=== PATIENT | female | born 1950 | race Caucasian/White ===

== ENCOUNTER 2019-06-13 06:56 | Day surgery (SDC) | payer MEDICARE ==
[~2019-06-13] VITALS: Ht 162.6 cm; Wt 95.4 kg
[2019-06-13 07:23] VITALS: BP 125/70
[2019-06-13] MEDS ORDERED: LAMO200T2 PO (08:32)
[2019-06-13] MEDS ORDERED: DULO-31 PO (08:32)
[2019-06-13] MEDS ORDERED: INSU100V13 SQ (08:32)
[2019-06-13] MEDS ORDERED: CALC667T8 PO (08:32)
[2019-06-13] MEDS ORDERED: ASPI-611 PO (08:32)
[2019-06-13] MEDS ORDERED: GABA-530 PO (08:32)
[2019-06-13] MEDS ORDERED: CALC667C5 PO (08:32)
[2019-06-13] MEDS ORDERED: LEVO50TA8 PO (08:32)
[2019-06-13] MEDS ORDERED: ATOR40TA PO (08:32)
[2019-06-13] MEDS ORDERED: LOSA25TA96 PO (08:32)
[2019-06-13] MEDS ORDERED: METO-539 PO (08:32)
[2019-06-13] MEDS ORDERED: CALC0.253 PO (08:32)
[2019-06-13] MEDS ORDERED: FERR325T28 PO (08:32)
[2019-06-13] MEDS ORDERED: RISP0.5T3 PO (08:32)
[2019-06-13] MEDS ORDERED: FURO80TA87 PO (08:32)
[2019-06-13] MEDS ORDERED: LANTUS SQ (08:32)
[2019-06-13] MEDS ORDERED: normal saline 1000ml 1,000 ML IV SCH ×2 (08:34→11:14)
[2019-06-13] MEDS ORDERED: LIDOcaine 1%/PF 5ML 10 MG/ML VIAL SQ ONE (08:35)
[2019-06-13] MEDS ORDERED: heparin 1,000 units/ml 10ml inj ICATH ONE (08:35)
[2019-06-13] MEDS ORDERED: midazolam 2 mg/2 ml injection IV PRN (08:35)
[2019-06-13] MEDS ORDERED: fentaNYL/PF 50MCG/1 ML 2ML syringe IV PRN (08:35)
[2019-06-13 09:17] LABS: ALBUMIN 3.3 G/DL (3.4-5.0); ANION GAP 7 (8-16); BLOOD UREA NITROGEN 43 MG/DL (7-18); BUN/CREATININE RATIO 11.9 (6.6-38.0); CALCIUM 8.9 MG/DL (8.5-10.1); CHLORIDE 98 MMOL/L (99-107); GLUCOSE 287 MG/DL (70-104); POTASSIUM 4.4 MMOL/L (3.5-5.1); SODIUM 134 MMOL/L (135-145); TOTAL CARBON DIOXIDE 28.9 MMOL/L (24-32); eGFR 12 ML/MIN
--- NOTE | 2019-06-13 09:20 | NUR ---
MATHEUS Vazquez at bedside
[2019-06-13] MEDS ORDERED: LIDOcaine 1%/PF 5ML 10 MG/ML VIAL ONE (09:26)
[2019-06-13] MEDS ORDERED: iohexol 300mg/ml 100ml inj. ONE ×2 (09:26→10:25)
[2019-06-13] MEDS ORDERED: heparin 1,000unit/ml 10ml vial 10 ML ONE (09:26)
[2019-06-13] MEDS ORDERED: heparin 1,000 UNITS/NS 500ml 500 ML ONE (09:26)
[2019-06-13] MEDS ORDERED: midazolam 2 mg/2 ml injection ONE ×2 (09:26→10:06)
[2019-06-13] MEDS ORDERED: fentaNYL/PF 50MCG/1 ML 2ML syringe ONE ×2 (09:26→10:07)
--- NOTE | 2019-06-13 09:32 | NUR ---
Pt leaving floor to procedure
[2019-06-13 11:15] VITALS: BP 131/62
[2019-06-13 11:30] VITALS: BP 132/74
[2019-06-13 11:45] VITALS: BP 143/75
[2019-06-13 12:00] VITALS: BP 133/75
[2019-06-13 12:35] VITALS: BP 136/70
== END 2019-06-13 12:35 | disposition home or self-care (01) ==
LOC: SSTAY O 06:56
PROVIDERS: ATTEND Radiology Vascular & Interventional Radiology
DX: T82.858A Stenosis of other vascular prosthetic devices, implants and grafts, initial encounter (principal); E11.22 Type 2 diabetes mellitus with diabetic chronic kidney disease; I12.0 Hypertensive chronic kidney disease with stage 5 chronic kidney disease or end stage renal disease; N18.6 End stage renal disease; E78.00 Pure hypercholesterolemia, unspecified; D50.9 Iron deficiency anemia, unspecified; E11.40 Type 2 diabetes mellitus with diabetic neuropathy, unspecified; E03.9 Hypothyroidism, unspecified; Z79.899 Other long term (current) drug therapy; Z79.4 Long term (current) use of insulin; Y83.2 Surgical operation with anastomosis, bypass or graft as the cause of abnormal reaction of the patient, or of later complication, without mention of misadventure at the time of the procedure; Y92.89 Other specified places as the place of occurrence of the external cause
CPT/HCPCS: 36415; 36902; 80048; 99152; 99153; C1725; C1769; C1894; J1644; J2250; J3010; J7030; Q9967

== ENCOUNTER 2022-12-14 08:55 | Day surgery (SDC) | payer MEDICARE ==
[~2022-12-14] VITALS: Ht 162.6 cm; Wt 83.2 kg
[2022-12-14] VITALS (7 sets, daily range): BP systolic 95–115; BP diastolic 42–67; PULSE 74–80; RESP 14–16; TEMP 98.2; O2SAT 92–97
[~2022-12-14 08:55] MED LIST: ASPI-611 PO; ATOR40TA PO; CALC0.253 PO; CALC667C5 PO; CALC667T8 PO; DULO-31 PO; FERR325T28 PO; FURO80TA87 PO; GABA-530 PO; INSU100V13 SQ; LAMO200T2 PO; LANTUS SQ; LEVO50TA8 PO; LOSA25TA96 PO; METO-539 PO; RISP0.5T65 PO
[2022-12-14] MEDS ORDERED: normal saline 1000ml 1,000 ML IV PRN (09:20)
[2022-12-14] MEDS ORDERED: DOCU100C40 PO (09:34)
[2022-12-14] MEDS ORDERED: NEPHC PO (09:34)
[2022-12-14] MEDS ORDERED: FURO40TA4 PO (09:34)
[2022-12-14] MEDS ORDERED: SEVE800T28 PO (09:34)
[2022-12-14 10:01] LABS: BASOPHILS # (AUTO) 0.1 X10'3 (0-0.2); BASOPHILS % (AUTO) 0.7 % (0-1); EOSINOPHILS # (AUTO) 0.3 X10'3 (0-0.9); EOSINOPHILS % (AUTO) 3.9 % (0-6); HEMATOCRIT 34.7 % (35.0-45.0); HEMOGLOBIN 11.5 g/dl (12.0-16.0); LYMPHOCYTES # (AUTO) 1.4 X10'3 (1.1-4.8); LYMPHOCYTES % (AUTO) 16.4 % (21-51); MEAN CORPUSCULAR HEMOGLOBIN 30.7 PG (27.0-31.0); MEAN CORPUSCULAR HGB CONC 33.1 g/dL (33.0-36.5); MEAN CORPUSCULAR VOLUME 92.7 FL (78-98); MEAN PLATELET VOLUME 8.4 FL (7.4-10.4); MONOCYTES # (AUTO) 0.7 X10'3 (0-0.9); MONOCYTES % (AUTO) 8.2 % (2-12); NEUTROPHILS % (AUTO) 70.8 % (42-75); PLATELET COUNT 269 X10'3 (140-440); RED BLOOD COUNT 3.75 X10'6 (4.20-5.60); RED CELL DISTRIBUTION WIDTH 15.4 % (11.5-14.5); WHITE BLOOD COUNT 8.4 X10'3 (4.5-11.0)
[2022-12-14 10:09] LABS: ALBUMIN 3.4 G/DL (3.4-5.0); ANION GAP 15 (8-16); BLOOD UREA NITROGEN 60 MG/DL (7-18); CALCIUM 9.5 MG/DL (8.5-10.1); CHLORIDE 99 MMOL/L (99-107); GLUCOSE 254 MG/DL (70-104); POTASSIUM 4.1 MMOL/L (3.5-5.1); SODIUM 139 MMOL/L (135-145); TOTAL CARBON DIOXIDE 25.4 MMOL/L (24-32); eGFR 11 ML/MIN
[2022-12-14] MEDS ORDERED: iohexol 300mg/ml 100ml inj. ONE (11:03)
[2022-12-14] MEDS ORDERED: fentaNYL/PF 50MCG/1 ML 2ML syringe ONE (11:03)
[2022-12-14] MEDS ORDERED: heparin 1,000 UNITS/NS 500ml 500 ML ONE (11:04)
== END 2022-12-14 13:25 | disposition home or self-care (01) ==
LOC: SSTAY O 08:55
PROVIDERS: ATTEND Radiology Diagnostic Radiology
DX: T82.858A Stenosis of other vascular prosthetic devices, implants and grafts, initial encounter (principal); E78.00 Pure hypercholesterolemia, unspecified; D50.9 Iron deficiency anemia, unspecified; G62.9 Polyneuropathy, unspecified; E03.9 Hypothyroidism, unspecified; E11.22 Type 2 diabetes mellitus with diabetic chronic kidney disease; I12.0 Hypertensive chronic kidney disease with stage 5 chronic kidney disease or end stage renal disease; N18.6 End stage renal disease; Z90.710 Acquired absence of both cervix and uterus; Z98.890 Other specified postprocedural states; Z79.4 Long term (current) use of insulin; Z79.899 Other long term (current) drug therapy; Z79.82 Long term (current) use of aspirin; Y83.2 Surgical operation with anastomosis, bypass or graft as the cause of abnormal reaction of the patient, or of later complication, without mention of misadventure at the time of the procedure; Y92.89 Other specified places as the place of occurrence of the external cause
CPT/HCPCS: 36415; 36902; 80048; 85025; 85610; 99152; C1725; C1769; J1644; J3010; J7030; Q9967; A4620; C1894